=== PATIENT | male | born 1965 | race Caucasian/White ===

== ENCOUNTER 2020-05-05 18:06 | Emergency (ER) | payer OTHER ==
[~2020-05-05] VITALS: Ht 170.2 cm; Wt 67.1 kg
== END 2020-05-05 22:27 | disposition home or self-care (01) ==
LOC: ER 18:06
DX: N20.0 Calculus of kidney (principal)

== ENCOUNTER 2021-11-02 09:52 | Outpatient (CLI) | payer OTHER | END 2021-11-02 10:06 | disposition home or self-care (01) | LOC: SONOGRAMA 09:52 | PROVIDERS: ATTEND Specialist | DX: R22.2 Localized swelling, mass and lump, trunk (principal) ==

== ENCOUNTER 2021-11-17 05:53 | Day surgery (SDC) | payer OTHER | END 2021-11-17 14:05 | disposition home or self-care (01) | LOC: CIR.AMB 05:53 | PROVIDERS: ATTEND Specialist | DX: D17.1 Benign lipomatous neoplasm of skin and subcutaneous tissue of trunk (principal); E78.5 Hyperlipidemia, unspecified ==